=== PATIENT | female | born 1970 | race Caucasian/White ===

== ENCOUNTER 2016-09-10 20:27 | Emergency (ER) | payer BC ==
[2016-09-10 20:40] VITALS: BP 140/88
--- NOTE | 2016-09-10 21:09 | EDM.PDOC ---
ED HPI GENERAL MEDICAL PROBLEM - General Chief Complaint: Upper Extremity Injury/Pain Stated Complaint: INJURED MIDDLE & RING FINGER ON RIGHT HAND Time Seen by Provider: 09/10/16 21:00 Source of Information: Reports: Patient History Limitations: Reports: No Limitations - History of Present Illness INITIAL COMMENTS - FREE TEXT/NARRATIVE: Patient is a 46-year-old female who presents to the ED complaining of right ring and middle finger pain. Patient was walking her 100 pound dog from running to someone and while doing so the injured fingers were caught in the leash causing them to be twisted. She has pain with decreased range of motion in addition noted to these fingers. Minimal swelling present. She has decreased sensation to the right ring finger. She denies any pain to the remaining fingers, hand, wrist, forearm, elbow, upper arm, or shoulder. Right 4-Ring finger Pain Score (Numeric/FACES): 5 - Related Data Allergies Allergy/AdvReac Type Severity Reaction Status Date / Time aspirin Allergy Airway Verified 09/10/16 20:36 Tightness NSAIDS (Non-Steroidal Allergy Airway Verified 09/10/16 20:36 Anti-Inflamma Tightness Penicillins Allergy Edema Verified 09/10/16 20:36 Home Meds: Home Meds . [No Known Home Meds] 09/10/16 [History] Past Medical History - Past Surgical History Female Surgical History: Reports: Section, Hysterectomy Social & Family History - Tobacco Use Smoking Status *Q: Never Smoker - Caffeine Use Caffeine Use: Reports: None - Recreational Drug Use Recreational Drug Use: No Review of Systems - Review of Systems Review Of Systems: ROS reveals no pertinent complaints other than HPI. ED EXAM, GENERAL - Physical Exam Exam: See Below Exam Limited By: No Limitations General Appearance: Alert, WD/WN, No Apparent Distress Ears: Hearing Grossly Normal Nose: Normal Inspection Throat/Mouth: Normal Voice, No Airway Compromise Neck: Normal Inspection, Supple Respiratory/Chest: No Respiratory Distress, Lungs Clear, Normal Breath Sounds Cardiovascular: Normal Peripheral Pulses, Regular Rate, Rhythm Peripheral Pulses: 2+: Radial (R) Extremities: Other (Right hand: 3rd finger, mild pain with palpation. Full AROM/ PROM with no pain. No bony abnormalities, ecchymosis, abrasions, swelling noted. Right ring finger: Pain with palpation of the DIP. Increasing pain with active and passive range of motion. Able to flex and extend against resistance. No findings for mallet finger. Bony tenderness noted to the DIP. No sensory deficits noted. No pain with palpation of the remaining fingers, hand, wrist, forearm, elbow, upper arm, or shoulder.) Neurological: Alert, Oriented, Normal Cognition Psychiatric: Normal Affect, Normal Mood Skin Exam: Warm, Dry, Intact, Normal Color Course - Vital Signs Last Recorded V/S: Last Vital Signs Temp 99 F 09/10/16 20:32 Pulse 95 09/10/16 20:32 Resp 16 09/10/16 20:32 BP 140/88 09/10/16 20:39 Pulse Ox 100 09/10/16 20:32 - Orders/Labs/Meds Orders: Active Orders 24 hr Category Date Time Status Fingers Fourth Digit Rt F8 [CR] Stat Exams 09/10/16 21:03 Taken - Re-Assessments/Exams Free Text/Narrative Re-Assessment/Exam: Ordered x-ray of the right ring finger. 09/10/16 21:53 x-ray of the right ring finger did not elicit any acute bony abnormalities. Final interpretation is pending. Splint will be applied to the affected finger. Patient be discharged home with instructions as documented. Departure - Departure Time of Disposition: 21:54 Disposition: Home, Self-Care 01 Condition: Good Clinical Impression: Sprain of finger of right hand Qualifiers: Encounter type: initial encounter Finger: ring finger Sprain of finger site: interphalangeal joint Qualified Code(s): S63.634A - Sprain of interphalangeal joint of right ring finger, initial encounter - Discharge Information Forms: ED Department Discharge Additional Instructions: No fracture apparent on x-ray. Final interpretation is pending. We'll treat this as a finger sprain. This includes splinting for the next 2 weeks. Ice to affected area as needed to reduce swelling and pain. Refrain from utilization of the affected finger until symptoms improve. Follow-up with PCP as needed for reevaluation. Return to ED for any new or worsening symptoms. - My Orders Last 24 Hours: My Active Orders 09/10/16 21:03 Fingers Fourth Digit Rt F8 [CR] Stat - Assessment/Plan Last 24 Hours: My Active Orders 09/10/16 21:03 Fingers Fourth Digit Rt F8 [CR] Stat
--- NOTE | 2016-09-11 07:38 | CR ---
Right finger: Four views of the right finger were obtained. This is most likely the fourth finger but please correlate. Soft tissue swelling is identified. No fracture, dislocation or other bony abnormality is seen. Impression: 1. Soft tissue swelling. No acute bony abnormality is identified on right finger exam. Diagnostic code #2
== END 2016-09-10 22:03 | disposition home or self-care (01) ==
LOC: JD.ED 20:27
DX: S63.634A Sprain of interphalangeal joint of right ring finger, initial encounter (principal); Z90.710 Acquired absence of both cervix and uterus; Z98.890 Other specified postprocedural states; Z88.0 Allergy status to penicillin; Z88.8 Allergy status to other drugs, medicaments and biological substances; X50.0XXA Overexertion from strenuous movement or load, initial encounter
CPT/HCPCS: 73140-26-F8; 73140-F8; 99283

== ENCOUNTER 2019-03-29 18:03 | Emergency (ER) | payer BC ==
[2019-03-29 18:31] VITALS: BP 145/85; PULSE 98
[2019-03-29] MEDS ORDERED: Fluorescein 1 MG Ophth Strip EYERT ONE (18:56)
--- NOTE | 2019-03-29 19:13 | EDM.PDOC ---
ED HPI GENERAL MEDICAL PROBLEM - General Chief Complaint: Eye Problems Stated Complaint: R EYE INJURY Time Seen by Provider: 03/29/19 18:53 Source of Information: Reports: Patient History Limitations: Reports: No Limitations - History of Present Illness INITIAL COMMENTS - FREE TEXT/NARRATIVE: The patient presents with a possible piece of brass in her eye. She was drilling and she forgot to put her safety goggles down and a piece went into her right eye. She rinsed it right away and came in. She has no pain now. She has a FB sensation to the upper eyelid area on the right. She has no vision changes. Onset: Sudden Duration: Minutes: Location: Reports: Other (right eye) Severity: Mild Improves with: Reports: None Worsens with: Reports: None Associated Symptoms: Reports: No Other Symptoms Right Eye Pain Score (Numeric/FACES): 0 - Related Data Allergies Allergy/AdvReac Type Severity Reaction Status Date / Time aspirin Allergy Airway Verified 03/29/19 18:31 Tightness NSAIDS (Non-Steroidal Allergy Airway Verified 03/29/19 18:31 Anti-Inflamma Tightness Penicillins Allergy Edema Verified 03/29/19 18:31 Home Meds: Home Meds . [No Known Home Meds] 09/10/16 [History] Past Medical History - Past Surgical History Female Surgical History: Reports: Section, Hysterectomy Social & Family History - Family History Family Medical History: Noncontributory - Tobacco Use Smoking Status *Q: Former Smoker Used Tobacco, but Quit: Yes Month/Year Tobacco Last Used: 2001 - Caffeine Use Caffeine Use: Reports: Coffee - Recreational Drug Use Recreational Drug Use: No ED ROS GENERAL - Review of Systems Review Of Systems: See Below Constitutional: Reports: No Symptoms HEENT: Reports: Other (FB right eye) Respiratory: Reports: No Symptoms Cardiovascular: Reports: No Symptoms Endocrine: Reports: No Symptoms GI/Abdominal: Reports: No Symptoms : Reports: No Symptoms Musculoskeletal: Reports: No Symptoms ED EXAM GENERAL W FULL EYE - Physical Exam Exam: See Below Exam Limited By: No Limitations General Appearance: Alert, No Apparent Distress Eye Exam: Bilateral Eye: EOMI, PERRL Eyelids: Right: Normal Appearance Conjunctiva & Sclera: Right: Normal Appearance Cornea Exam: Right: Normal Appearance, Examined with Flourescein Ears: Normal External Exam Nose: Normal Inspection Course - Vital Signs Last Recorded V/S: Last Vital Signs Temp 98.7 F 03/29/19 18:29 Pulse 98 03/29/19 18:29 Resp 19 03/29/19 18:29 BP 145/85 H 03/29/19 18:29 Pulse Ox 98 03/29/19 18:29 - Orders/Labs/Meds Meds: Medications Discontinued Medications Generic Name Dose Route Start Last Admin Trade Name Jimmy PRN Reason Stop Dose Admin Fluorescein Sodium 1 mg 03/29/19 18:56 03/29/19 19:02 Ful-Natalee EYERT 03/29/19 18:57 1 mg ONETIME ONE Administration - Re-Assessments/Exams Free Text/Narrative Re-Assessment/Exam: 03/29/19 19:15 I examined her eye with the slit lamp and there is no abrasion or FB. I will discharge he home. Departure - Departure Time of Disposition: 19:20 Disposition: Home, Self-Care 01 Condition: Good Clinical Impression: FB (foreign body) of eyelid Qualifiers: Laterality: right Qualified Code(s): S00.251A - Superficial foreign body of right eyelid and periocular area, initial encounter - Discharge Information *PRESCRIPTION DRUG MONITORING PROGRAM REVIEWED*: Not Applicable *COPY OF PRESCRIPTION DRUG MONITORING REPORT IN PATIENT [facility]: Not Applicable Additional Instructions: It appears you have removed the brass from your eye. I do not see a scratch in your eye either. Follow up with an file conversion operator if you are worse. Sepsis Event Note - Evaluation Sepsis Screening Result: No Definite Risk - Focused Exam Vital Signs: Vital Signs Temp Pulse Resp BP Pulse Ox 03/29/19 18:29 98.7 F 98 19 145/85 H 98 Date Exam was Performed: 03/29/19 Time Exam was Performed: 19:07
== END 2019-03-29 19:28 | disposition home or self-care (01) ==
LOC: JD.ED 18:03
DX: S00.251A Superficial foreign body of right eyelid and periocular area, initial encounter (principal); Z88.6 Allergy status to analgesic agent; Z88.0 Allergy status to penicillin; Z87.891 Personal history of nicotine dependence; X58.XXXA Exposure to other specified factors, initial encounter; Y93.89 Activity, other specified
CPT/HCPCS: 99282; 99283

== ENCOUNTER 2024-01-09 16:08 | Emergency (ER) | payer BC ==
[2024-01-09 18:24] VITALS: BP 136/80; PULSE 84
== END 2024-01-09 18:05 | disposition home or self-care (01) ==
LOC: JD.ED 16:08
DX: S50.12XA Contusion of left forearm, initial encounter (principal); Z86.16 Personal history of COVID-19; Z90.710 Acquired absence of both cervix and uterus; Z88.5 Allergy status to narcotic agent; Z88.6 Allergy status to analgesic agent; Z88.0 Allergy status to penicillin; W20.8XXA Other cause of strike by thrown, projected or falling object, initial encounter; Y92.89 Other specified places as the place of occurrence of the external cause
CPT/HCPCS: 73090-26-LT; 73090-LT; 99283